=== PATIENT | female | born 1960 | race African-American/Black ===

== ENCOUNTER 2021-09-27 08:05 | Outpatient (CLI) | payer BC, SELFPAY ==
[2021-09-27 12:40] LABS: Absolute Lymphocyte Count 1.83 X10^3/uL (0.83-4.51); Absolute Neutrophil Count 1.5 X10^3/uL (2.0-7.7); Basophil# 0.01 X10^3/uL; Basophil% 0.3 % (0-1); Eosinophil# 0.12 X10^3/uL; Eosinophils% 3.1 % (0-5); Hematocrit 37.6 % (37-47); Hemoglobin 12.2 g/dL (12.0-15.0); Lymphocyte # 1.83 X10^3/ul (0.83-4.51); Lymphocyte % 47.4 % (19-41); Mean Corp Hgb Conc 32.4 g/dL (32-36); Mean Corpuscular Hgb 32.3 pg (27.0-32.0); Mean Corpuscular Volume 99.5 fL (81-99); Mean Platelet Vol. 11.4 fl (6.2-12.0); Monocyte# 0.43 X10^3/uL; Monocyte% 11.1 % (0-10); NRBC Flagged by Analyzer 0 % (0-5); Neutrophil # 1.46 X10^3/uL (2.7-7.7); Neutrophil % 37.8 % (47-70); Platelet Count 281 K/mm3 (150-450); RBC Distribution Width CV 13.9 % (11.6-14.6); RBC Distribution Width SD 51.2 fl (35.1-43.9); Red Blood Count 3.78 M/mm3 (4.2-5.4); White Blood Count 3.9 K/mm3 (4.4-11.0)
[2021-09-27 12:58] LABS: Vitamin D,25 Hydroxy 48.3 ng/mL
[2021-09-27 13:10] LABS: ALB/GLOB Ratio 0.9 RATIO (0.9-2.4); AST(SGOT) 210 U/L (15-37); Alanine Aminotransfer ALT/SGPT 521 U/L (13-56); Albumin, Serum 3.6 g/dL (3.2-5.0); Alkaline Phosphatase 192 U/L (45-117); Anion Gap 5 (5-15); BUN 19 mg/dL (7-18); BUN/Creat Ratio 28.5 RATIO (10-20); Calcium,Total 8.6 mg/dL (8.5-10.1); Chloride 107 mmol/L (98-107); Cholesterol 226 mg/dL (200); Creatinine, Serum 0.67 mg/dL (0.55-1.02); EST Glomerular Filtration Rate 95 mL/min (>60); Est Glom Filt Rate - Afr Amer 116 mL/min (>60); Globulin 4.1 g/dL (2.2-4.2); Glucose 95 mg/dL (74-106); High Density Lipoprotein 106 mg/dL; Potassium 3.8 mmol/L (3.5-5.1); Protein, Total 7.7 g/dL (6.4-8.2); Sodium Level 138 mmol/L (136-145); Thyroid Stim Hormone (TSH) 5.63 uIU/mL (0.358-3.74); Triglycerides 276 mg/dL; Very Low Density Lipoprotein 55 mg/dL (5-40)
== END 2021-09-27 23:59 | disposition home or self-care (01) ==
LOC: BIMLAB 08:06
PROVIDERS: PCP Internal Medicine; Visit Provider Internal Medicine
DX: I10 Essential (primary) hypertension (principal); E03.9 Hypothyroidism, unspecified; E55.9 Vitamin D deficiency, unspecified
CPT/HCPCS: 36415; 80053; 80061; 82306; 84443; 85025

== ENCOUNTER → 2021-12-18 | Outpatient (CLI) | payer BC, SELFPAY ==
--- NOTE | 2021-12-18 11:25 | BD_ITS ---
STUDY: DUAL ENERGY X-RAY ABSORPTIOMETRY / DXA REASON FOR EXAM: Female, 61 years old. Post Menopausal TECHNIQUE: Bone Mineral Density (BMD) measurements of lumbar spine and bilateral hips were obtained. COMPARISON: None. FINDINGS: Lumbar Spine (L1-L4): g/cm2 (1.037) / T-score (-0.1) / Z-score (1.5) Findings are suggestive of normal bone density with a low fracture risk. Left Femur Total: g/cm2 (0.965) / T-score (0.2) / Z-score (1.3) Left Femoral Neck: g/cm2 (0.761) / T-score (-0.8) / Z-score (0.6) Right Femur Total: g/cm2 (0.933) / T-score (-0.1) / Z-score (1.0) Right Femoral Neck: g/cm2 (0.760) / T-score (-0.8) / Z-score (0.6) BD/Dexa Bone Density Study IMPRESSION: The patient is considered normal as outlined below according to World Jose Organization (WHO) criteria with a low fracture risk. Reference Information: The T-score is the number of standard deviations above or below the standard which is normal for young adults at their peak bone mineral density. The World Health Organization (WHO) interprets the T-scores as follows: Above -1 Normal bone density Between -1 and -2.5 Osteopenia Equal to / or below -2.5 Osteoporosis As a practical clinical guideline, osteopenia may be graded as follows: Mild -1 through -1.5 Moderate -1.6 through -2.0 Severe -2.1 through -2.4 The Z-score is the number of standard deviations above or below age-matched controls. A Z-score of less than -1.5 would be considered abnormal. References: 1. NIH Osteoporosis and Related Bone Diseases www osteo.org 2. International Society for Clinical Densitometry www iscd.org 3. National Osteoporosis Foundation www nof.org Electronically Signed: Sunday Hauser MD at 12:01 EDT ,
== END | disposition home or self-care (01) ==
LOC: OPBD 11:18
PROVIDERS: PCP Internal Medicine; Referring Provider Internal Medicine; Visit Provider Internal Medicine
DX: Z13.820 Encounter for screening for osteoporosis (principal); Z78.0 Asymptomatic menopausal state
CPT/HCPCS: 77080

== ENCOUNTER → 2022-02-27 | Outpatient (CLI) | payer BC, SELFPAY ==
--- NOTE | 2022-02-27 07:43 | US_ITS ---
STUDY: ABDOMINAL ULTRASOUND - RIGHT UPPER QUADRANT REASON FOR VISIT: Female, 61 years old . Elevated liver function tests. TECHNIQUE: Ultrasound evaluation of the right upper quadrant was performed with real-time and static mathews-scale imaging. TECHNICAL QUALITY: Adequate. COMPARISON: None. FINDINGS: Liver: The liver measures 13 cm. There is normal echogenicity of the liver. The bile ducts are within normal limits. There is hepatic color flow. The direction of portal flow is hepatopetal. There is a 1.1 cm x 1 cm x 0.9 cm septated cyst in the right lobe of the liver. Gallbladder: Normal distended gallbladder. The gallbladder wall measures 2.0 mm. There is a negative sonographic Correia''s sign. There is no pericholecystic fluid. There are no gallstones. Common Bile Duct (C.B.D.): The common bile duct measures 4.0 mm. Pancreas: Normal size of the head, body and tail of the pancreas. There is normal echogenicity of the pancreas. There is no demonstrated pancreatic mass or cyst. Right Kidney: Normal size of the right kidney. The right kidney measures 9.8 cm x 5.5 cm x 5.6 cm. Normal renal cortex. The right cortex measures 2.0 cm. There is no demonstrated renal mass or cyst. There is no right hydronephrosis. US/Abdomen Limited IMPRESSION: 1 cm x 1.1 cm x 0.9 cm septated cyst in the right lobe of the liver. Electronically Signed: Sunday Hauser MD at 12:55 EDT ,
--- NOTE | 2022-02-27 07:43 | US_ITS ---
STUDY: ABDOMINAL ULTRASOUND - ELASTOGRAPHY REASON FOR VISIT: Female, 61 years old. Elevated liver function tests. TECHNIQUE: Liver stiffness measurements were obtained on a [employer] RS 85 ultrasound machine using a CA 1-7 probe following the SRU guidelines. 3 measurements were obtained using a 2-D-SWE method. The IQR/M was 11% suggesting a quality data set. TECHNICAL QUALITY: Adequate. COMPARISON: Comparison is made with prior study done earlier today. FINDINGS: Liver: There is no demonstrated mass lesion. Median liver stiffness measured 9.5 kPa. 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 Electronically Signed: Sunday Hauser MD at 12:56 EDT ,
== END | disposition home or self-care (01) ==
LOC: US 07:41
PROVIDERS: PCP Internal Medicine; Referring Provider Internal Medicine Gastroenterology; Visit Provider Internal Medicine Gastroenterology
DX: K76.89 Other specified diseases of liver (principal); R94.5 Abnormal results of liver function studies
CPT/HCPCS: 76705; 76981

== ENCOUNTER → 2022-03-12 | Outpatient (CLI) | payer BC, SELFPAY ==
--- NOTE | 2022-03-12 15:48 | BI_ITS ---
MAMMOGRAPHY - BILATERAL SCREENING REASON FOR EXAM: Female, 61 years old. Routine annual screening examination. PERTINENT HISTORY: Non-contributory. TECHNIQUE: Digital bilateral breast kana (3D mammographic acquisition) in the CC and MLO projections. 2-D mediolateral oblique (MLO) and craniocaudad (CC) views of both breasts were obtained. CAD: Full Field Digital Mammography with Computer Added Detection was performed. COMPARISON: Comparison is made with prior abdomen examination dated 02/07/2021. FINDINGS: Breast Composition: There are scattered areas of fibroglandular density. There are no dominant masses or suspicious calcifications. Stable 4.1 mm nodule in the deep axillary region of the left breast. No other significant abnormalities are identified. There has been no significant change since the prior study. BI/SCRN MAMM (CAD)W/KANA BILAT IMPRESSION: Stable bilateral screening mammogram. Yearly follow-up mammogram recommended. (A) ASSESSMENT CATEGORY: BIRADS Category 2: Benign. A letter regarding these results will be sent to the patient by the facility within 30 days. Approximately 10% of breast cancers are not detected by mammography. A normal mammogram should not delay biopsy of a clinically suspicious abnormality. [id number] Electronically Signed: Sunday Hauser MD at 12:42 EDT ,
== END | disposition home or self-care (01) ==
LOC: OPBI 15:47
PROVIDERS: PCP Internal Medicine; Visit Provider Internal Medicine
DX: Z12.31 Encounter for screening mammogram for malignant neoplasm of breast (principal)
CPT/HCPCS: 77063; 77067

== ENCOUNTER → 2022-03-19 | Outpatient (CLI) | payer BC, SELFPAY ==
[2022-03-19 15:39] LABS: Erythrocyte Sedimentation Rate 25 mm/hr (0-30)
[2022-03-19 15:42] LABS: Absolute Lymphocyte Count 1.83 X10^3/uL (0.83-4.51); Absolute Neutrophil Count 1.9 X10^3/uL (2.0-7.7); Basophil# 0.02 X10^3/uL; Basophil% 0.5 % (0-1); Eosinophil# 0.11 X10^3/uL; Eosinophils% 2.6 % (0-5); Hematocrit 39.5 % (37-47); Hemoglobin 12.9 g/dL (12.0-15.0); Lymphocyte # 1.83 X10^3/ul (0.83-4.51); Mean Corp Hgb Conc 32.7 g/dL (32-36); Mean Corpuscular Hgb 31.6 pg (27.0-32.0); Mean Corpuscular Volume 96.8 fL (81-99); Mean Platelet Vol. 11.9 fl (6.2-12.0); Monocyte# 0.43 X10^3/uL; Monocyte% 10.1 % (0-10); NRBC Flagged by Analyzer 0 % (0-5); Neutrophil # 1.86 X10^3/uL (2.7-7.7); Neutrophil % 43.6 % (47-70); Platelet Count 250 K/mm3 (150-450); RBC Distribution Width CV 13.3 % (11.6-14.6); RBC Distribution Width SD 47.8 fl (35.1-43.9); Red Blood Count 4.08 M/mm3 (4.2-5.4); White Blood Count 4.3 K/mm3 (4.4-11.0)
[2022-03-19 15:56] LABS: Prothrombin Time (Protime)PT. 12.4 SECONDS (11.7-14.9)
[2022-03-19 16:29] LABS: ALB/GLOB Ratio 0.9 RATIO (0.9-2.4); AST(SGOT) 84 U/L (15-37); Alanine Aminotransfer ALT/SGPT 159 U/L (13-56); Albumin, Serum 3.8 g/dL (3.2-5.0); Alkaline Phosphatase 104 U/L (45-117); Anion Gap 4 (5-15); BUN 19 mg/dL (7-18); BUN/Creat Ratio 22.9 RATIO (10-20); CRP < 2.90 mg/L (0.0-3.0); Calcium,Total 9.7 mg/dL (8.5-10.1); Chloride 110 mmol/L (98-107); Creatinine, Serum 0.83 mg/dL (0.55-1.02); EST Glomerular Filtration Rate 74 mL/min (>60); Est Glom Filt Rate - Afr Amer 90 mL/min (>60); Ferritin 176 ng/mL (8-252); Globulin 4.2 g/dL (2.2-4.2); Glucose 110 mg/dL (74-106); LDH 217 U/L (84-246); Potassium 3.7 mmol/L (3.5-5.1); Sodium Level 141 mmol/L (136-145)
[2022-03-19 16:30] LABS: Hemoglobin A1c 5.8 % (3.8-5.6)
[2022-03-19 16:49] LABS: HIV - WCH Non-Reactive (Nonreactive)
[2022-03-21 16:09] LABS: Anti-Centromere B Ab <0.2 AI (0.0-0.9); Anti-Chromatin <0.2 AI (0.0-0.9); Anti-Jo <0.2 AI (0.0-0.9); Anti-Scleroderma-70 AB <0.2 AI (0.0-0.9); RNP Ab <0.2 AI (0.0-0.9); SJOGREN'S Anti-SS-A test 0.2 AI (0.0-0.9); SJOGREN'S Anti-SS-B test < 0.2 AI (0.0-0.9); Smith Ab <0.2 AI (0.0-0.9)
[2022-03-22 10:26] LABS: Anti-Mitochondrial AB <20.0 Units (0.0-20.0); Anti-dsDNA Ab 4 IU/mL (0-9)
[2022-03-24 15:08] LABS: Angiotensin Convert Enzyme < 15 U/L (14-82); Ceruloplasmin 30.5 mg/dL (19.0-39.0); Cytoplasmic Ab (C-ANCA) <1:20 titer (Neg:<1:20); HEPATITIS B SURFACE AG Negative (Negative); Hep C Antibodies <0.1 s/co ratio (0.0-0.9); Hepatitis A IgM Antibody Negative (Negative); Hepatitis B Core AB IgM Negative (Negative)
[2022-03-25 08:55] LABS: Anti-Smooth Muscle ABS 68 Units (0-19); Copper, Serum or Plasma 135 ug/dL (80-158); Haptoglobin 77 mg/dL (37-355); Perinuclear Ab (P-ANCA) <1:20 titer (Neg:<1:20)
== END | disposition home or self-care (01) ==
LOC: BIMLAB 13:46
PROVIDERS: Internal Medicine Gastroenterology; PCP Internal Medicine; Referring Provider Internal Medicine; Visit Provider Internal Medicine
DX: R94.5 Abnormal results of liver function studies (principal)
CPT/HCPCS: 80053; 80074; 82105; 82140; 82164; 82390; 82525; 82728; 83010; 83036; 83516; 83615; 85025; 85610; 85652; 86140; 86225; 86235; 86256; 86703

== ENCOUNTER → 2022-04-23 | Outpatient (CLI) | payer BC, SELFPAY ==
[2022-04-23] VITALS (11 sets, daily range): BP systolic 105–167; BP diastolic 63–87; PULSE 56–75; RESP 12–19; TEMP 36.3; O2SAT 94–100; BMI 28.5
--- NOTE | 2022-04-23 | LIVB_PTH ---
PATIENT: RANJIT LARSON LOC: [place] U#:[id number] AGE/SX: 61/F ROOM: RE04/23/[address]: Dr. Sebas Jama DO : 1960 BED: DIS: 04/23/2022 SPEC #: [id number] RECD: 04/23/22 10:08 STATUS: JUNITO REQ #: [id number] YAIR: 04/23/22 00:[address]: Sebas Jama DEPT: SURGICAL PATHOLOGY RECD BY: Shelli Rubio ENTERED: 04/23/22 10:55 SP TYPE: LIVER BX OT DR: Dr. Juan Silverman MD Tissues: Liver, NOS Procedures: PAS with Diastase (control) Trichrome (control) Special Stain Group II PAS Stain (control) Surgery Specimen Level V Retic (control) Iron Stain (control) HEADER OPERATION: Liver biopsy PRE-OP DIAGNOSIS: Hepatitis TISSUE SUBMITTED: Liver 18-gauge x3 MICROSCOPIC DIAGNOSIS Liver, core biopsy: Chronic hepatitis, grade 3 and stage 1 (modified Knodell scoring system). See microscopic description and comment. SJ:parisa 04/24/2022 COMMENT Findings are consistent with autoimmune hepatitis. Correlation with clinical, laboratory and radiologic findings and appropriate follow up are necessary. Case has been reviewed in consultation with Dr. Linares who concurs with the above diagnosis. IDC:[place] MICROSCOPIC DESCRIPTION Slides are reviewed. The specimen shows liver parenchymal tissue with preserved lobular architecture. Hepatocytes show reactive changes. Mild lobular inflammation is also noted. Portal area shows moderate to severe chronic inflammatory cell infiltrates, consisting of numerous lymphocytes, moderate number of plasma cells and rare eosinophils and neutrophils. Moderate interface information is also noted. Inflammatory infiltrates variable in degree with showing one of the cores more prominent inflammatory changes as compared to others. Iron stain shows mild diffuse deposition of iron and hepatocytes (grade 1). Reticulin stain is unremarkable. Trichrome stains do not show significant increased portal, periportal and presumed fibrosis. PAS stain with and without diastase do not show any abnormal accumulation of protein. All stains are performed with appropriate matched controls. GROSS DESCRIPTION Received is one container labeled with the patient's name and not further designated. The specimen consists of multiple elongated fragments of yeh tissue that in aggregate measure 1.2 x 0.5 x 0.1 cm. The specimen is totally submitted in one cassette. / AM:parisa 04/23/2022 TC:3 CPT: 16914, 27498 x5
--- NOTE | 2022-04-23 08:05 | CT_ITS ---
PROCEDURE: CT DIRECTED CORE LIVER BIOPSY INDICATION: Female, 61 years old. Suspected autoimmune hepatitis PHYSICIAN: Dr. GEORGIA Arnold CONSENT: Written informed consent was obtained having explained the risks, benefits and alternatives in detail with the patient who accepted the risks and agreed to proceed. Laboratory review and clinical assessment was performed. CONSCIOUS SEDATION PROTOCOL: The Drugs used were: 2 mg Versed, IV., and 50 mcg Fentanyl, IV. The sedation time was: 17 minutes. Conscious sedation was started at 9:45 AM and terminated at 10:02 AM The conscious sedation protocol was independently monitored. RADIATION DOSAGE (If Supplied By Facility): CTDIvol = ( 14.6 ) mGy, DLP = ( 250.51 ) mGycm Individualized dose optimization techniques were used for this CT. TECHNIQUE: Using CT image guidance with image documentation, a suitable location in the right lobe of the liver was identified. Using an anterior approach, puncture of the liver was uneventful with an 18-gauge core needle system. 3, 18-gauge core samples were obtained, and submitted in formalin to the pathologist for further assessment. CT/Biopsy/Inj or Needle Placement IMPRESSION: 1. CT directed core needle biopsy of the liver, using CT image guidance with image documentation as described. 2. Conscious Sedation protocol utilized with independent monitoring. Electronically Signed: Sunday Hauser MD at 10:20 [facility] ,
[2022-04-23 08:11] LABS: Platelet Count 226 K/mm3 (150-450)
[2022-04-23 09:30] LABS: Prothrombin Time (Protime)PT. 12.7 SECONDS (11.7-14.9)
[2022-04-23 09:31] LABS: Partial Thromboplast Time 36.8 Seconds (24.1-36.2)
[2022-04-23] MEDS: Midazolam 2 MG/2 ML Syringe IV (09:45)
[2022-04-23] MEDS: fentaNYL 100 MCG/2 ML Ampul IV (09:47)
[2022-04-23] MEDS: Lidocaine 2% (20 ml mdv) 20 ML Vial (09:55)
== END | disposition home or self-care (01) ==
PROVIDERS: PCP Internal Medicine; Referring Provider Internal Medicine Gastroenterology; Visit Provider Internal Medicine Gastroenterology
DX: K75.4 Autoimmune hepatitis (principal)
CPT/HCPCS: 47000; 36415; 77012; 85049; 85610; 85730; 88307; 88313; 99156; J7050

== ENCOUNTER → 2022-06-20 | Outpatient (CLI) | payer BC, SELFPAY ==
[2022-06-20 10:02] LABS: Ammonia < 10.0 umol/L (11-32)
[2022-06-20 10:08] LABS: Absolute Lymphocyte Count 2.44 X10^3/uL (0.83-4.51); Basophil# 0.03 X10^3/uL; Basophil% 0.4 % (0-1); Eosinophil# 0.09 X10^3/uL; Eosinophils% 1.1 % (0-5); Hematocrit 41.3 % (37-47); Hemoglobin 13.4 g/dL (12.0-15.0); Lymphocyte # 2.44 X10^3/ul (0.83-4.51); Lymphocyte % 28.9 % (19-41); Mean Corp Hgb Conc 32.4 g/dL (32-36); Mean Corpuscular Hgb 32.4 pg (27.0-32.0); Mean Corpuscular Volume 99.8 fL (81-99); Mean Platelet Vol. 10.8 fl (6.2-12.0); Monocyte# 0.77 X10^3/uL; Monocyte% 9.1 % (0-10); NRBC Flagged by Analyzer 0 % (0-5); Neutrophil # 5.04 X10^3/uL (2.7-7.7); Neutrophil % 59.6 % (47-70); Platelet Count 330 K/mm3 (150-450); RBC Distribution Width CV 14.5 % (11.6-14.6); RBC Distribution Width SD 53.7 fl (35.1-43.9); Red Blood Count 4.14 M/mm3 (4.2-5.4); White Blood Count 8.5 K/mm3 (4.4-11.0)
[2022-06-20 10:11] LABS: International Normalized Ratio 0.9; Prothrombin Time (Protime)PT. 11.9 SECONDS (11.7-14.9)
[2022-06-20 10:23] LABS: Hemoglobin A1c 5.8 % (3.8-5.6)
[2022-06-20 10:41] LABS: Albumin, Serum 3.4 g/dL (3.2-5.0); BUN 15 mg/dL (7-18); BUN/Creat Ratio 21.1 RATIO (10-20); Creatinine, Serum 0.71 mg/dL (0.55-1.02); EST Glomerular Filtration Rate 88 mL/min (>60); Erythrocyte Sedimentation Rate 15 mm/hr (0-30); Est Glom Filt Rate - Afr Amer 107 mL/min (>60); Glucose 85 mg/dL (74-106); Protein, Total 7.3 g/dL (6.4-8.2)
[2022-06-20 10:42] LABS: ALB/GLOB Ratio 0.9 RATIO (0.9-2.4); AST(SGOT) 276 U/L (15-37); Alanine Aminotransfer ALT/SGPT 708 U/L (13-56); Alkaline Phosphatase 278 U/L (45-117); Amylase 54 U/L (25-115); Anion Gap 7 (5-15); Calcium,Total 9.2 mg/dL (8.5-10.1); Chloride 103 mmol/L (98-107); Cholesterol 219 mg/dL (200); Ferritin 390 ng/mL (8-252); Globulin 3.9 g/dL (2.2-4.2); High Density Lipoprotein 115 mg/dL; LDH 246 U/L (84-246); Lipase 98 U/L (73-393); Potassium 3.7 mmol/L (3.5-5.1); Sodium Level 140 mmol/L (136-145); Thyroid Stim Hormone (TSH) 2.46 uIU/mL (0.358-3.74); Triglycerides 71 mg/dL; Very Low Density Lipoprotein 14 mg/dL (5-40)
[2022-06-23 14:08] LABS: Endomysial Antibody IgA Negative (Negative); Immunoglobulin A 232 mg/dL (87-352)
[2022-06-23 16:17] LABS: Thyroid Peroxidase AB 10 IU/mL (0-34); t-Transglutaminase IgA <2 U/mL (0-3)
== END | disposition home or self-care (01) ==
LOC: LAB 08:53
PROVIDERS: PCP Internal Medicine; Referring Provider Nurse Practitioner Adult Health; Visit Provider Nurse Practitioner Adult Health
DX: K75.4 Autoimmune hepatitis (principal)
CPT/HCPCS: 36415; 80053; 80061; 82140; 82150; 82728; 82784; 83036; 83516; 83615; 83690; 84443; 85025; 85610; 85652; 86140; 86255; 86376

== ENCOUNTER → 2022-09-04 | Outpatient (CLI) | payer BC, SELFPAY ==
[2022-09-04 09:22] LABS: Absolute Lymphocyte Count 3.17 X10^3/uL (0.83-4.51); Absolute Neutrophil Count 7.2 X10^3/uL (2.0-7.7); Basophil# 0.02 X10^3/uL; Basophil% 0.2 % (0-1); Eosinophil# 0.01 X10^3/uL; Eosinophils% 0.1 % (0-5); Hematocrit 41.6 % (37-47); Hemoglobin 13.6 g/dL (12.0-15.0); Lymphocyte # 3.17 X10^3/ul (0.83-4.51); Lymphocyte % 28.1 % (19-41); Mean Corp Hgb Conc 32.7 g/dL (32-36); Mean Corpuscular Hgb 33.3 pg (27.0-32.0); Mean Corpuscular Volume 101.7 fL (81-99); Mean Platelet Vol. 10.3 fl (6.2-12.0); Monocyte# 0.82 X10^3/uL; Monocyte% 7.3 % (0-10); NRBC Flagged by Analyzer 0 % (0-5); Neutrophil # 7.18 X10^3/uL (2.7-7.7); Neutrophil % 63.6 % (47-70); Platelet Count 288 K/mm3 (150-450); RBC Distribution Width CV 14.4 % (11.6-14.6); RBC Distribution Width SD 53.5 fl (35.1-43.9); Red Blood Count 4.09 M/mm3 (4.2-5.4); White Blood Count 11.3 K/mm3 (4.4-11.0)
[2022-09-04 09:27] LABS: International Normalized Ratio 0.9; Prothrombin Time (Protime)PT. 11.7 SECONDS (11.7-14.9)
[2022-09-04 09:28] LABS: Erythrocyte Sedimentation Rate 1 mm/hr (0-30)
[2022-09-04 09:49] LABS: ALB/GLOB Ratio 1.1 RATIO (0.9-2.4); AST(SGOT) 18 U/L (15-37); Alanine Aminotransfer ALT/SGPT 39 U/L (13-56); Albumin, Serum 3.4 g/dL (3.2-5.0); Alkaline Phosphatase 43 U/L (45-117); Anion Gap 3 (5-15); BUN 16 mg/dL (7-18); BUN/Creat Ratio 23.2 RATIO (10-20); CRP < 2.90 mg/L (0.0-3.0); Calcium,Total 9.1 mg/dL (8.5-10.1); Chloride 107 mmol/L (98-107); Creatinine, Serum 0.69 mg/dL (0.55-1.02); EST Glomerular Filtration Rate 92 mL/min (>60); Est Glom Filt Rate - Afr Amer 111 mL/min (>60); Ferritin 141 ng/mL (8-252); Globulin 3.2 g/dL (2.2-4.2); Glucose 92 mg/dL (74-106); Potassium 3.6 mmol/L (3.5-5.1); Protein, Total 6.6 g/dL (6.4-8.2); Sodium Level 141 mmol/L (136-145)
[2022-09-04 09:56] LABS: Thyroid Stim Hormone (TSH) 1.58 uIU/mL (0.358-3.74)
[2022-09-05 16:09] LABS: Cytoplasmic Ab (C-ANCA) <1:20 titer (Neg:<1:20)
[2022-09-06 09:03] LABS: Anti-Smooth Muscle ABS 16 Units (0-19); Perinuclear Ab (P-ANCA) <1:20 titer (Neg:<1:20)
== END | disposition home or self-care (01) ==
LOC: LAB 08:31
PROVIDERS: PCP Internal Medicine; Referring Provider Internal Medicine Gastroenterology; Visit Provider Internal Medicine Gastroenterology
DX: K75.4 Autoimmune hepatitis (principal); E03.9 Hypothyroidism, unspecified
CPT/HCPCS: 36415; 80053; 82728; 83516; 84443; 85025; 85610; 85652; 86140; 86256

== ENCOUNTER → 2023-01-08 | Outpatient (CLI) | payer BC, SELFPAY ==
[2023-01-08 13:53] LABS: Absolute Lymphocyte Count 1.55 X10^3/uL (0.83-4.51); Absolute Neutrophil Count 1.9 X10^3/uL (2.0-7.7); Basophil# 0.01 X10^3/uL; Basophil% 0.3 % (0-1); Eosinophil# 0.04 X10^3/uL; Hematocrit 37.6 % (37-47); Hemoglobin 12.6 g/dL (12.0-15.0); Lymphocyte # 1.55 X10^3/ul (0.83-4.51); Lymphocyte % 40.5 % (19-41); Mean Corp Hgb Conc 33.5 g/dL (32-36); Mean Corpuscular Hgb 32.3 pg (27.0-32.0); Mean Corpuscular Volume 96.4 fL (81-99); Mean Platelet Vol. 10.6 fl (6.2-12.0); Monocyte# 0.36 X10^3/uL; Monocyte% 9.4 % (0-10); NRBC Flagged by Analyzer 0 % (0-5); Neutrophil # 1.86 X10^3/uL (2.7-7.7); Neutrophil % 48.5 % (47-70); Platelet Count 258 K/mm3 (150-450); RBC Distribution Width CV 12.3 % (11.6-14.6); RBC Distribution Width SD 43.5 fl (35.1-43.9); White Blood Count 3.8 K/mm3 (4.4-11.0)
[2023-01-08 15:01] LABS: ALB/GLOB Ratio 1.2 RATIO (0.9-2.4); AST(SGOT) 34 U/L (15-37); Alanine Aminotransfer ALT/SGPT 35 U/L (13-56); Albumin, Serum 3.9 g/dL (3.2-5.0); Alkaline Phosphatase 66 U/L (45-117); Anion Gap 8 (5-15); BUN 13 mg/dL (7-18); BUN/Creat Ratio 18.1 RATIO (10-20); Calcium,Total 9.4 mg/dL (8.5-10.1); Chloride 100 mmol/L (98-107); Creatinine, Serum 0.72 mg/dL (0.55-1.02); EST Glomerular Filtration Rate 87 mL/min (>60); Est Glom Filt Rate - Afr Amer 105 mL/min (>60); Globulin 3.3 g/dL (2.2-4.2); Glucose 78 mg/dL (74-106); Potassium 4.2 mmol/L (3.5-5.1); Protein, Total 7.2 g/dL (6.4-8.2); Sodium Level 134 mmol/L (136-145)
[2023-01-08 15:57] LABS: Hepatitis B Surface Antibody Non-Reactive
[2023-01-10 07:08] LABS: Hepatitis A AB, Total Positive (Negative)
== END | disposition home or self-care (01) ==
LOC: LAB 13:08
PROVIDERS: PCP Internal Medicine; Referring Provider Internal Medicine Gastroenterology; Visit Provider Internal Medicine Gastroenterology
DX: K75.4 Autoimmune hepatitis (principal)
CPT/HCPCS: 36415; 80053; 85025; 86706; 86708